=== PATIENT | female | born 2000 | race Caucasian/White ===

== ENCOUNTER 2021-01-03 14:20 | Emergency (ER) | payer MEDICAID ==
[~2021-01-03] VITALS: Ht 162.6 cm; Wt 53.0 kg
[2021-01-03 14:32] VITALS: BP 110/71
[2021-01-03] MEDS ORDERED: ONDA4TAB6 PO (15:33)
== END 2021-01-03 15:48 | disposition home or self-care (01) ==
LOC: ER 14:21
DX: R11.2 Nausea with vomiting, unspecified (principal); R05.9 Cough, unspecified; R51.9 Headache, unspecified; R06.02 Shortness of breath; K21.9 Gastro-esophageal reflux disease without esophagitis; F32.9 Major depressive disorder, single episode, unspecified; Z79.899 Other long term (current) drug therapy
CPT/HCPCS: 99283